=== PATIENT | female | born 1970 | race Caucasian/White ===

== ENCOUNTER 2023-05-20 11:25 | Day surgery (SDC) | payer BC, OTHER, SELFPAY ==
[2023-05-20] VITALS (13 sets, daily range): BP systolic 134–213; BP diastolic 75–97; PULSE 78–101; RESP 10–36; TEMP 36.1–37.2; O2SAT 89–97; BMI 33.2
--- NOTE | 2023-05-20 11:36 | ECG_ITS ---
[facility] Test Date: 2023-05-20 Pat Name: VANI LIZ Department: Room: - Gender: Female Talent Rep: : 1970 Requested By: JULIO LEYVA Order Number: [id number] Reading MD: LOGAN LOZA Measurements Intervals [place] Rate: 77 P: 44 MO: 184 QRS: 9 QRSD: 102 T: 23 QT: 398 QTc: 452 Interpretive Statements SINUS RHYTHM Nonspecific ST/T wave changes No previous ECG available for comparison Electronically Signed On 05-21-2023 19:06:48 EDT by LOGAN LOZA
[2023-05-20 12:01] LABS: Glucometer 86 mg/dL (74-106)
[2023-05-20] MEDS: LACTATED RINGER'S SOLUTION 1,000 ML 50 ML IV (12:15)
[2023-05-20] MEDS: CIPROFLOXACIN IN 5 % DEXTROSE 400 MG/200 ML PIGGYBACK 200 MG IV (15:49)
[2023-05-20] MEDS: IOHEXOL 240 MG/ML - 10 ML VIAL INJ (16:43)
[2023-05-20] MEDS: LACTATED RINGER'S SOLUTION 1,000 ML 75 ML IV (16:50)
--- NOTE | 2023-05-20 17:28 | PM.URSON ---
Urology Surgery Operative Note Operative Note Procedure Date: 05/20/23 Time Out Performed: yes Pre-op Diagnosis: left ureteral and renal calculi Post-op Diagnosis: same as pre-op Procedures performed: #1. Cystoscopy. #2. Left retrograde pyelogram. #3. Left rigid ureteral dilation. #4. Left ureteroscopy. #5. Left pyeloscopy. #6. Holmium laser lithotripsy of left renal calculi. #7. Stone fragmented basket extraction. #8. Placement of 6 [place] variable length left ureteral stent Anesthesia: General-LMA Primary Surgeon: J Luis Monaco Complications: non- Estimated blood loss (mL): 5 Findings: #1. Passed ureteral calculus #2. Stenotic left UPJ. #3. Left renal calculi Specimens: and left renal calculi fragments Drains: 6 [place] variable length left ureteral stent Indications for Procedures: this lady has a 5-6 mm left ureteral calculus and ipsilateral small renal calculi. She has been trying to spontaneously pass this stone but has not been able. She is strongly desirous for ureteroscopic stone manipulation and possible stent placement. She has signed an informed consent for these procedures after risks were explained. Some of these risks include bleeding, infection, anesthesia, ureteral stricture,possible damage to ureter and/or kidney, possible need for further procedures to name a few. Detailed description of Procedure: The patient was brought to the operating room and placed on the operating room table in the supine position. SCDs were placed on the lower extremities and turned on and functioning during the entire case. Timeout was done by all parties in the room. We all agreed upon the patient's identification and the planned procedures for this patient. Genn. anesthesia was then administered. The patient was then repositioned into the modified dorsal lithotomy position. All pressure points were satisfactorily padded. Genitalia were sterilely prepped and draped in usual fashion.I started by passing a 22 [place] Olympus cystoscope per urethra and into the bladder. 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 While using fluoroscopy I could not identify a stone along the expected course of the left ureter. I passed a Glidewire through the scope and cannulated the left ureter and was able to get it up to tthe left kidney. I then used a 8 and 10 [place] rigid dilator to dilate the distal left ureter. The cystoscope was removed. I then passed an 07/25 navigator ureteral access sheath over the wire and further dilated the ureter. The access sheath tip went up to the L5 level. The stylette and guidewire were then removed. I then passed a flexible Dornier ureteroscope through the sheath and into the ureter. I scoped up the ureter and at the area of the UPJ I kept struggling. I was unable to get into the renal pelvis. I then brought the scope back down to the L3 level and then did a retrograde pyelogram through the scope. This clearly showed a very narrow UPJ. Contrast was able to get into the kidney and filled the calyceal system. I then passed a Glidewire through the scope and was able to get it into the kidney. I then advanced the scope over the wire and once I got to the UPJ although I could not see through it eventually the scope simply popped through into the renal pelvis. The wire was removed. I then scoped in the upper mid and lower pole calyces. I found to small stones in the upper and mid calyx. I then passed a 272 ? holmium laser fiber and at 6 W continuously did laser lithotripsy. The 1st stone was cracked up very well. The 2nd larger stone was cracked into a few pieces. I then cracked up most of these pieces into much smaller pieces. The remaining sizable piece was then grasped with a 0 tip baskket. This was brought down and out and sent for stone analysis. Scoope was then passed back up and into the kidney and one further checked throughout the kidney revealed no evidence of the any remaining stones. Course no tumors were seen either. A guidewire was passed into the kidney and the scope was removed. As the scope was brought down the access sheath was removed so the entire ureter was evaluated in full. No ureteral stone was noted. I then backloaded the cystoscope over the wire and passed it into the bladder. I then slid a 6 [place] variable length ureteral stent over the wire up into the kidney. The wire was removed and there were good curls in the kidney and in the bladder. The bladder was drained of its contents and the scope was then removed. She was then [facility] and wheeled to PACU in stable condition. She'll be discharged to home later today with a prescription for doxycycline 100 mg daily #14 and Vesicare 10 mg daily #14. We'll get her stent out in the office in a couple weeks.
[2023-05-20 17:44] LABS: Glucometer 75 mg/dL (74-106)
[2023-05-20] MEDS: SOLIFENACIN SUCCINATE 10 MG TABLET PO (17:46)
[2023-05-30 16:09] LABS: Calcium Oxalate Dihydrate 30 % (.); Calcium Oxalate Monohydrate 70 % (.)
== END 2023-05-20 19:12 | disposition home or self-care (01) ==
LOC: SURGOUT 17:27 → MS 18:29
PROVIDERS: Anesthesiology; Visit Provider Urology
PROC: (CPT 52356; principal; 2023-05-20 13:00)
DX: N13.2 Hydronephrosis with renal and ureteral calculous obstruction (principal); E11.9 Type 2 diabetes mellitus without complications; J45.909 Unspecified asthma, uncomplicated; I10 Essential (primary) hypertension; E78.5 Hyperlipidemia, unspecified; Z85.3 Personal history of malignant neoplasm of breast; E66.9 Obesity, unspecified; Z87.440 Personal history of urinary (tract) infections; Z90.710 Acquired absence of both cervix and uterus; Z98.51 Tubal ligation status; Z79.85 Long-term (current) use of injectable non-insulin antidiabetic drugs; Z79.899 Other long term (current) drug therapy; Z68.32 Body mass index [BMI] 32.0-32.9, adult; Z85.528 Personal history of other malignant neoplasm of kidney
CPT/HCPCS: 52356; 36415; 74420; 82365; 82948; 93005; C1874; J2704; Q9966